=== PATIENT | female | born 1970 | race Caucasian/White ===

== ENCOUNTER 2017-04-02 22:03 | Emergency (ER) | payer SELFPAY ==
[~2017-04-02] VITALS: Ht 170.2 cm; Wt 83.3 kg
[~2017-04-02 22:03] MED LIST: ALBU1.25 NEB; ALBU8.5H8 IH; ATOR10TA PO; AZIT250T6 PO; BUDE10.2 IH; D-ME1CAP PO; DULO60CA6 PO; GUAI-40 PO; HYDR-2758 PO; MELO7.5T29 PO; OMEP40CA2 PO; PRED20TA PO; anti-inflammatory; muscle relaxer
[2017-04-03 00:05] LABS: BASO % 0 % (0-3); EOS # 0.1 x10^3/uL (0.0-0.7); EOS % 1 % (0-3); HEMATOCRIT 39.1 % (36.0-47.0); HEMOGLOBIN 13.5 g/dL (12.0-15.5); LYMPH # 2.6 x10^3/uL (1.0-4.8); LYMPH % 22 % (24-48); MEAN CORPUSCULAR HEMOGLOBIN 33 pg (25-35); MEAN CORPUSCULAR HGB CONC 35 g/dL (31-37); MEAN CORPUSCULAR VOLUME 96 fL (79-100); MONO # 0.9 x10^3/uL (0.0-1.1); MONO % 8 % (0-9); NEUT % 68 % (31-73); PLATELET COUNT 227 x10^3/uL (140-400); RED BLOOD COUNT 4.08 x10^6/uL (3.50-5.40); RED CELL DISTRIBUTION WIDTH 12.6 % (11.5-14.5); WHITE BLOOD COUNT 11.7 x10^3/uL (4.0-11.0)
[2017-04-03 00:16] LABS: ALBUMIN 3.2 g/dL (3.4-5.0); ALBUMIN/GLOBULIN RATIO 0.9 (1.0-1.7); CALCIUM 8.5 mg/dL (8.5-10.1); CREATININE 0.6 mg/dL (0.6-1.0); GFR 106.7; MAGNESIUM 2.1 mg/dL (1.8-2.4); POTASSIUM 3.8 mmol/L (3.5-5.1); TOTAL BILIRUBIN 0.2 mg/dL (0.2-1.0); TOTAL PROTEIN 6.8 g/dL (6.4-8.2)
--- NOTE | 2017-04-03 01:18 | EKG ---
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
[2017-04-03 01:27] LABS: BARBITURATES NEG (NEG); BENZODIAZEPINES NEG (NEG); CANNABINOIDS POS (NEG); COCAINE NEG (NEG); METHADONE NEG (NEG); OPIATES POS (NEG); PHENCYCLIDINE NEG (NEG)
[2017-04-03 01:28] LABS: BACTERIA,URINE FEW /HPF (0-FEW); BILIRUBIN,URINE NEG (NEG); CLARITY,URINE CLEAR; COLOR,URINE YELLOW; GLUCOSE,URINE NEG (NEG); NITRITE,URINE NEG (NEG); RBC,URINE 0 /HPF (0-2); SQUAMOUS EPITHELIAL CELL,UR FEW /LPF; UROBILINOGEN,URINE 0.2 mg/dL (0.2 mg/dL)
[2017-04-03 01:29] LABS: AMPHETAMINE/METHAMPHETAMINE NEG (NEG)
[2017-04-03 01:50] VITALS: BP 115/67
--- NOTE | 2017-04-03 02:58 | ED.ADGEN ---
Past History Past Medical History: COPD, Other Past Surgical History: , Hysterectomy, Other Smoking: Quit Greater Than 1 Year Alcohol Use: None Drug Use: None Adult General HPI HPI Patient is a 47-year-old woman, with a history of hypertension, who is currently being evaluated for "tremors", by her primary care provider, with concern for possible Parkinson's disease, who presents emergency Department with complaint of the tremors which she is being evaluated, and also of lightheadedness. Patient denies any vertiginous type symptoms, any nausea or vomiting, any chest pain or shortness of breath. She states that she was feeling lightheaded since this morning. "As though I might pass out", denies any syncopal episodes. Patient states it has been hot outside. She denies any sick contacts or exposures, denies any focal weakness, numbness or tingling, any change in the tremors for which she is being evaluated, which he described as a bolus and this type motion that is occasional. Patient denies any injuries , any recent travel or surgery, any medication changes. Review of Systems Review of Systems Constitutional: Denies fever or chills [] lightheadedness. Eyes: Denies change in visual acuity, redness, or eye pain [] HENT: Denies nasal congestion or sore throat [] Respiratory: Denies cough or shortness of breath [] Cardiovascular: No additional information not addressed in HPI [] GI: Denies abdominal pain, nausea, vomiting, bloody stools or diarrhea [] : Denies dysuria or hematuria [] Musculoskeletal: Denies back pain or joint pain [] Integument: Denies rash or skin lesions [] Neurologic: Denies headache, focal weakness or sensory changes , complaining of tremors. [] Endocrine: Denies polyuria or polydipsia [] Allergies Allergies Allergies Coded Allergies Type Severity Reaction Last Updated Verified Penicillins Allergy Intermediate Rash 07/31/16 Yes Sulfa (Sulfonamide Antibiotics) Allergy Intermediate Rash 07/31/16 Yes iodine Allergy Intermediate rash 07/31/16 Yes Physical Exam Physical Exam Constitutional: Well developed, well nourished, no acute distress, non-toxic appearance. [] HENT: Normocephalic, atraumatic, bilateral external ears normal, oropharynx moist, no oral exudates, nose normal. [] Eyes: PERRLA, EOMI, conjunctiva normal, no discharge. [] Neck: Normal range of motion, no tenderness, supple, no stridor. [] Cardiovascular:Heart rate regular rhythm, no murmur, S1, S2, no rubs or gallops. [] Lungs & Thorax: Bilateral breath sounds clear to auscultation , no wheezing, rhonchi, rales. No chest wall crepitus or tenderness. [] Abdomen: Bowel sounds normal, soft, no tenderness, no rebound, rigidity, no guarding, no masses, no pulsatile masses. [] Skin: Warm, dry, no erythema, no rash. [] Back: No tenderness, no CVA tenderness. [] Extremities: No tenderness, no cyanosis, no clubbing, ROM intact, no edema. Negative Homans sign. [] Neurologic: Alert and oriented X 3, normal motor function, normal sensory function, no focal deficits noted. [] Psychologic: Affect normal, judgement normal, mood normal. [] Current Patient Data Lab Results Laboratory Tests Test 04/02/17 23:43 04/03/17 01:03 White Blood Count 11.7 x10^3/uL (4.0-11.0) H Red Blood Count 4.08 x10^6/uL (3.50-5.40) Hemoglobin 13.5 g/dL (12.0-15.5) Hematocrit 39.1 % (36.0-47.0) Mean Corpuscular Volume 96 fL (79-100) Mean Corpuscular Hemoglobin 33 pg (25-35) Mean Corpuscular Hemoglobin Concent 35 g/dL (31-37) Red Cell Distribution Width 12.6 % (11.5-14.5) Platelet Count 227 x10^3/uL (140-400) Neutrophils (%) (Auto) 68 % (31-73) Lymphocytes (%) (Auto) 22 % (24-48) L Monocytes (%) (Auto) 8 % (0-9) Eosinophils (%) (Auto) 1 % (0-3) Basophils (%) (Auto) 0 % (0-3) Neutrophils # (Auto) 8.0 x10^3uL (1.8-7.7) H Lymphocytes # (Auto) 2.6 x10^3/uL (1.0-4.8) Monocytes # (Auto) 0.9 x10^3/uL (0.0-1.1) Eosinophils # (Auto) 0.1 x10^3/uL (0.0-0.7) Basophils # (Auto) 0.0 x10^3/uL (0.0-0.2) Sodium Level 143 mmol/L (136-145) Potassium Level 3.8 mmol/L (3.5-5.1) Chloride Level 105 mmol/L (98-107) Carbon Dioxide Level 30 mmol/L (21-32) Anion Gap 8 (6-14) Blood Urea Nitrogen 17 mg/dL (7-20) Creatinine 0.6 mg/dL (0.6-1.0) Estimated GFR (Cockcroft-Gault) 106.7 BUN/Creatinine Ratio 28 (6-20) H Glucose Level 114 mg/dL (70-99) H Calcium Level 8.5 mg/dL (8.5-10.1) Magnesium Level 2.1 mg/dL (1.8-2.4) Total Bilirubin 0.2 mg/dL (0.2-1.0) Aspartate Amino Transferase (AST) 17 U/L (15-37) Alanine Aminotransferase (ALT) 22 U/L (14-59) Alkaline Phosphatase 53 U/L (46-116) Total Protein 6.8 g/dL (6.4-8.2) Albumin 3.2 g/dL (3.4-5.0) L Albumin/Globulin Ratio 0.9 (1.0-1.7) L Urine Collection Type Unknown Urine Color Yellow Urine Clarity Clear Urine pH 6.5 Urine Specific [place] 1.020 Urine Protein Neg (NEG-TRACE) Urine Glucose (UA) Neg mg/dL (NEG) Urine Ketones (Stick) Neg mg/dL (NEG) Urine Blood Neg (NEG) Urine Nitrite Neg (NEG) Urine Bilirubin Neg (NEG) Urine Urobilinogen Dipstick 0.2 mg/dL (0.2 mg/dL) Urine Leukocyte Esterase Trace (NEG) Urine RBC 0 /HPF (0-2) Urine WBC 5-10 /HPF (0-4) Urine Squamous Epithelial Cells Few /LPF Urine Bacteria Few /HPF (0-FEW) Urine Opiates Screen Pos (NEG) Urine Methadone Screen Neg (NEG) Urine Barbiturates Neg (NEG) Urine Phencyclidine Screen Neg (NEG) Urine Amphetamine/Methamphetamine Neg (NEG) Urine Benzodiazepines Screen Neg (NEG) Urine Cocaine Screen Neg (NEG) Urine Cannabinoids Screen Pos (NEG) Urine Ethyl Alcohol Neg (NEG) EKG EKG EC: Sinus rhythm, heart rate 90 beats per minute, upright axis, QTC of 427, CA 156, QRS of 80, no ST elevations or depressions, normalities noted in the anterior septal leads, abnormal ECG, but does not meet STEMI criteria. As interpreted by me. [] Radiology/Procedures Radiology/Procedures Chest x-ray: One view: Normal cardiopulmonary silhouette, no infiltrates, no effusions, no pneumothorax, no soft tissue or bony abnormalities identified. As interpreted by me. [] Course & Med Decision Making Course & Med Decision Making Pertinent Labs and Imaging studies reviewed. (See chart for details) Patient noted to be occasionally flinging both arms into the air, and shaking her legs, however during our discussion, she is not experiencing any symptoms. 's denies lightheadedness during my evaluation, states she is feeling better, denies any vertiginous type symptoms. Laboratory studies and chest x- ray obtained along with ECG, did not reveal evidence of acutely concerning findings. When I went to speak with the patient, she was ambulating back from the bathroom, and asked when she would be discharged. I discussed with the patient that her electrolytes and other laboratory studies not reveal any acutely concerning findings at this time, she stated that was a relief, and that she was ready to go home. She has an appointment to follow up with her primary care provider in a few days for continued evaluation of her movement symptoms, we did discuss concerning symptoms that prompt return to the ED for additional evaluation. Patient voiced understanding and agreement, discharged home in stable condition with plan as above. Final Impression Final Impression [] Problems: Dragon Disclaimer Dragon Disclaimer This electronic medical record was generated, in whole or in part, using a voice recognition dictation system. Departure: Impression: Primary Impression: Light-headed feeling Disposition: 01 HOME, SELF-CARE Condition: IMPROVED MARGARET NOBLES DO Apr 03, 2017 02:58
--- NOTE | 2017-04-03 07:34 | RAD ---
Portable AP view CXR: Clinical indications: Tremor. History of COPD. Comparison: July 31, 2016. Findings: No acute lung infiltrate or pleural effusion or pulmonary edema or lung mass or pneumothorax is seen. The heart size, pulmonary vasculature, mediastinum and both hunter are stable. Impression: No acute radiographic abnormality is seen.
== END 2017-04-03 01:58 | disposition home or self-care (01) ==
LOC: ER 22:03
DX: R42 Dizziness and giddiness (principal); R25.1 Tremor, unspecified; J44.9 Chronic obstructive pulmonary disease, unspecified; I10 Essential (primary) hypertension; Z87.891 Personal history of nicotine dependence; Z88.0 Allergy status to penicillin; Z88.2 Allergy status to sulfonamides; Z91.041 Radiographic dye allergy status
CPT/HCPCS: 36415; 71010; 80053; 80305; 80320; 81001; 83735; 85027; 87086; 93005; G0481; 99285-25

== ENCOUNTER 2018-05-18 13:26 | Emergency (ER) | payer OTHER ==
[~2018-05-18] VITALS: Ht 167.6 cm; Wt 75.7 kg
--- NOTE | 2018-05-18 14:04 | PHYS DOC ---
Past History Past Medical History: GERD, Other Past Surgical History: , Hysterectomy, Lumbar Laminectomy Smoking: Quit Greater Than 1 Year Alcohol Use: None Drug Use: None Adult General Chief Complaint Chief Complaint: BACK PAIN OR INJURY HPI HPI Patient is a 48-year-old female who presents with complaining of back injury. Patient states she had low back surgery and screw placement in July 2017 and taking several pain medication. Patient states she was slipped on the floor after draining and landed on her back without head injury or loss of consciousness prior to arrival to ER. Patient states her back pain getting worse and she drove to the hospital to be checked for possible injury to her back. Patient denies focal neuro deficit, urine and bowel incontinence, fever and chills. Review of Systems Review of Systems Constitutional: Denies fever or chills [] Eyes: Denies change in visual acuity, redness, or eye pain [] HENT: Denies nasal congestion or sore throat [] Respiratory: Denies cough or shortness of breath [] Cardiovascular: No additional information not addressed in HPI [] GI: Denies abdominal pain, nausea, vomiting, bloody stools or diarrhea [] : Denies dysuria or hematuria [] Musculoskeletal: Reports back pain Integument: Denies rash or skin lesions [] Neurologic: Denies headache, focal weakness or sensory changes [] Endocrine: Denies polyuria or polydipsia [] All other systems were reviewed and found to be within normal limits, except as documented in this note. Allergies Allergies Allergies Coded Allergies Type Severity Reaction Last Updated Verified Penicillins Allergy Intermediate Rash 07/31/16 Yes Sulfa (Sulfonamide Antibiotics) Allergy Intermediate Rash 07/31/16 Yes iodine Allergy Intermediate rash 07/31/16 Yes Physical Exam Physical Exam Constitutional: Well nourished, mild distress, non-toxic, anxious and tearful[] HENT: Normocephalic, atraumatic Eyes: PERRLA, EOMI, conjunctiva normal, no discharge. [] Neck: Normal range of motion, no tenderness, supple, no stridor. [] Cardiovascular:Heart rate regular rhythm, no murmur [] Lungs & Thorax: Bilateral breath sounds clear to auscultation [] Abdomen: Bowel sounds normal, soft, no tenderness, no masses, no pulsatile masses. [] Skin: Warm, dry, no erythema, no rash. [] Back: No deformity, painful range of motion, no midline tenderness, no CVA tenderness. [] Extremities: No tenderness, no cyanosis, no clubbing, ROM intact, no edema. [] Neurologic: Alert and oriented X 3, normal motor function, normal sensory function, no focal deficits noted. [] Psychologic: Affect anxious and tearful, mood normal. [] Current Patient Data Vital Signs Vital Signs Date Time Temp Pulse Resp B/P (MAP) Pulse Ox O2 Delivery O2 Flow Rate FiO2 05/18/18 13:40 98.6 92 18 93 Room Air EKG EKG [] Radiology/Procedures Radiology/Procedures [[address] [address] IMAGING REPORT Signed PATIENT: BEATA MILLER ACCOUNT: [id number] : 1970 LOCATION: ER AGE: 48 SEX: F EXAM STATUS: REG ER ORD. PHYSICIAN: DAKSHA WILKINS MD REASON: back injury, history of back surgery PROCEDURE: CT LUMBAR SPINE WO CONTRAST Examination: CT lumbar spine without contrast HISTORY: History of low back pain, fall COMPARISON: None available TECHNIQUE: Axial CT images of the lumbar spine was performed without contrast. Coronal and sagittal reformats are performed Exposure: One or more of the following individualized dose reduction techniques were utilized for this examination: 1. Automated exposure control 2. Adjustment of the mA and/or kV according to patient size 3. Use of iterative reconstruction technique FINDINGS: The vertebral body heights are maintained. There is minimal 1 mm anterolisthesis of L4 on L5 and 1 mm retrolisthesis of L3 on L4. Posterior lumbar fusion hardware identified at L4, L5, S1 vertebral levels. Mild disc bulge identified at L2-L3 vertebral level causing mild anterior thecal sac impression. There is mild disc bulge identified at L3-L4 vertebral level with mild bilateral neural foraminal narrowing.There is probable mild to moderate disc bulge identified at this level with mild bilateral neural foraminal narrowing at L4-L5. There is mild disc bulge identified at L5-S1 vertebral levels. Mild bilateral neural foraminal narrowing. Evaluation of the lower lumbar spine is limited due to streak artifact from lumbar hardware. IMPRESSION: 1. Lower lumbar hardware with mild to moderate degenerative changes lumbar spine as described above. Electronically signed by: Anup Martin MD (05/18/2018 2:26 PM) [id number] DICTATED AND SIGNED BY: ANUP MARTIN MD DATE: 05/18/18 1419 CC: DONNA MARAVILLA MD; DAKSHA WILKINS MD ~ ] Course & Med Decision Making Course & Med Decision Making Pertinent Imaging studies reviewed. (See chart for details) Evaluation of patient in ER showed 48-year-old female patient with history of previous back surgery on several pain medication complaining of a fall today. Patient had unremarkable physical exam except for anxiety. CT of lumbar spine did not show acute fracture and showed mild to moderate bulging disc in different limits. Patient states she has appointment with her back surgeon in 3 days and asking for work excuse until she seen by her surgeon but later on she mentioned to [employer] She was seen by her surgeon today and her surgeon wants she returns to work. [] Dragon Disclaimer Dragon Disclaimer This electronic medical record was generated, in whole or in part, using a voice recognition dictation system. Departure Departure: Impression: Primary Impression: Acute lumbosacral myofascial strain Additional Impressions: Tobacco abuse Tobacco abuse counseling Disposition: HOME, SELF-CARE (@1506) Condition: STABLE Referrals: DONNA MARAVILLA MD (PCP) Patient Instructions: Lumbosacral Strain Additional Instructions: Follow-up with your back surgeon regarding marked to moderate bulging disc and injury to her back Continue home pain medication Apply ice on your back Problem Qualifiers DAKSHA WILKINS MD May 18, 2018 14:04
--- NOTE | 2018-05-18 14:30 | RAD ---
Examination: CT lumbar spine without contrast HISTORY: History of low back pain, fall COMPARISON: None available TECHNIQUE: Axial CT images of the lumbar spine was performed without contrast. Coronal and sagittal reformats are performed Exposure: One or more of the following individualized dose reduction techniques were utilized for this examination: 1. Automated exposure control 2. Adjustment of the mA and/or kV according to patient size 3. Use of iterative reconstruction technique FINDINGS: The vertebral body heights are maintained. There is minimal 1 mm anterolisthesis of L4 on L5 and 1 mm retrolisthesis of L3 on L4. Posterior lumbar fusion hardware identified at L4, L5, S1 vertebral levels. Mild disc bulge identified at L2-L3 vertebral level causing mild anterior thecal sac impression. There is mild disc bulge identified at L3-L4 vertebral level with mild bilateral neural foraminal narrowing.There is probable mild to moderate disc bulge identified at this level with mild bilateral neural foraminal narrowing at L4-L5. There is mild disc bulge identified at L5-S1 vertebral levels. Mild bilateral neural foraminal narrowing. Evaluation of the lower lumbar spine is limited due to streak artifact from lumbar hardware. IMPRESSION: 1. Lower lumbar hardware with mild to moderate degenerative changes lumbar spine as described above. Electronically signed by: Anup Forde MD (05/18/2018 2:26 PM) [id number]
[2018-05-18 15:08] VITALS: BP 146/101
== END 2018-05-18 15:14 | disposition home or self-care (01) ==
LOC: ER 13:26
DX: S39.012A Strain of muscle, fascia and tendon of lower back, initial encounter (principal); K21.9 Gastro-esophageal reflux disease without esophagitis; Z72.0 Tobacco use; Z71.6 Tobacco abuse counseling; Z98.890 Other specified postprocedural states; Z88.0 Allergy status to penicillin; Z88.2 Allergy status to sulfonamides; Z91.041 Radiographic dye allergy status; W01.0XXA Fall on same level from slipping, tripping and stumbling without subsequent striking against object, initial encounter; Y93.89 Activity, other specified; Y92.89 Other specified places as the place of occurrence of the external cause; Y99.8 Other external cause status
CPT/HCPCS: 72131; 99284-25

== ENCOUNTER 2018-09-30 15:16 | Emergency (ER) | payer OTHER ==
[~2018-09-30] VITALS: Ht 167.6 cm; Wt 76.8 kg
[~2018-09-30 15:16] MED LIST changes: +ALBU2.5V8 IH; -ALBU8.5H8 IH; +HYDR-2155 PO; -HYDR-2758 PO
[2018-09-30] MEDS ORDERED: LIDOCAINE 1%/EPI 1:100,000 20 ML VIAL. IJ ONE (15:45)
--- NOTE | 2018-09-30 15:57 | PHYS DOC ---
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 She states a few days ago she felt a small tender nodule her subcutaneous region in her left antecubital fossa, and it has become increasingly red, painful, tender and large. She has not had any fevers or chills. She adamantly denies any IV drug use, although states she has had problems with drug use about 20 years ago. Palpation of the affected area worsens her pain. There are no alleviating factors to her symptoms. Review of Systems Review of Systems Constitutional: Denies fever or chills [] Eyes: Denies change in visual acuity, redness, or eye pain [] HENT: Denies nasal congestion or sore throat [] Respiratory: Denies cough or shortness of breath [] GI: Denies abdominal pain, nausea, vomiting, bloody stools or diarrhea [] : Denies dysuria or hematuria [] Musculoskeletal: Denies back pain or joint pain [] Integument: Denies rash or skin lesions, except as noted in the history of present illness. [] Neurologic: Denies headache, focal weakness or sensory changes [] Endocrine: Denies polyuria or polydipsia [] Psychiatric: The patient reports feeling very anxious. All other systems were reviewed and found to be within normal limits, except as documented in this note. Current Medications Current Medications Current Medications Medications (Trade) Dose Ordered Sig/Carrie Start Time Stop Time Status Last Admin Dose Admin Lidocaine/ Epinephrine (Xylocaine 1%-Epi 1:100,000) 20 ml 1X ONCE 09/30/18 15:45 09/30/18 15:46 DC Allergies Allergies Allergies Coded Allergies Type Severity Reaction Last Updated Verified Penicillins Allergy Intermediate Rash 07/31/16 Yes Sulfa (Sulfonamide Antibiotics) Allergy Intermediate Rash 07/31/16 Yes iodine Allergy Intermediate rash 07/31/16 Yes Physical Exam Physical Exam PHYSICAL EXAM: CONSTITUTIONAL: Well developed, well nourished HEAD: normocephalic, atraumatic EENT: PERRL, EOMI. Conjunctivae normal color, sclerae non-icteric; moist mucous membranes. NECK: Supple, non-tender; no meningismus. LUNGS: Lungs CTA, breathing even and unlabored. Normal air movement. HEART: Regular rate and rhythm, no murmur CHEST: No deformity; non-tender ABDOMEN: The abdomen is soft, and non-tender, no masses or bruits. EXTREM: Normal ROM; no deformity, no calf tenderness. Normal pulses palpable in all extremities. There is no pedal edema. SKIN: Left antecubital fossa, there is an area of erythema, and tenderness to palpation, along with some soft tissue swelling, with fluctuance, suggestive of a subcutaneous abscess. No other rash; no diaphoresis NEURO: Alert; normal speech and cognition; CN's grossly intact; strength grossly intact without focal deficit. BACK: No CVA TTP. Current Patient Data Vital Signs Vital Signs Date Time Temp Pulse Resp B/P (MAP) Pulse Ox O2 Delivery O2 Flow Rate FiO2 09/30/18 15:20 98.3 106 18 97 Room Air EKG EKG [] Radiology/Procedures Radiology/Procedures [] Course & Med Decision Making Course & Med Decision Making INCISION AND DRAINAGE PROCEDURE NOTE: The left forearm was prepped with Betadine, and the skin was anesthetized with 1 % lidocaine. An incision was made in the most fluctuant portion of the abscess, with drainage of a moderate amount of pus. The wound was probed with a blunt forceps, and packed with 1/2 inch gauze packing. The patient tolerated the procedure well. I discussed wound care at home with the patient, including changing packing daily for the next 5 days, the need for follow-up, and return precautions. Dragon Disclaimer Dragon Disclaimer This electronic medical record was generated, in whole or in part, using a voice recognition dictation system. Departure Departure: Impression: Primary Impression: Abscess Disposition: 01 HOME, SELF-CARE Condition: STABLE Referrals: DONNA MARAVILLA MD (PCP) Patient Instructions: Abscess Additional Instructions: Change the packing once daily for the next 5 days. Applying warm compresses to the affected area may help improve your symptoms. Follow-up with your primary care provider for a wound check in the next 2 days. Please call tomorrow morning to schedule appointment. Scripts Doxycycline Hyclate (DOXYCYCLINE HYCLATE) 100 Mg Capsule 1 CAP PO BID for -, #20 CAP Prov: ZAINAB STRICKLAND MD 09/30/18 ZAINAB STRICKLAND MD Sep 30, 2018 15:57
[2018-09-30] MEDS ORDERED: DOXYCYCLINE HYCLATE 100 MG TABLET PO ONE (17:00)
[2018-09-30] MEDS ORDERED: DOXY100C2 PO (17:00)
[2018-09-30 17:10] VITALS: BP 150/88
== END 2018-09-30 17:11 | disposition home or self-care (01) ==
LOC: ER 15:16
DX: L02.414 Cutaneous abscess of left upper limb (principal); J44.9 Chronic obstructive pulmonary disease, unspecified; K21.9 Gastro-esophageal reflux disease without esophagitis; Z87.891 Personal history of nicotine dependence; Z88.0 Allergy status to penicillin; Z88.2 Allergy status to sulfonamides; Z91.041 Radiographic dye allergy status
CPT/HCPCS: 10060; 87070; 99283

== ENCOUNTER 2020-02-18 05:21 | Emergency (ER) | payer OTHER ==
[~2020-02-18] VITALS: Ht 167.6 cm; Wt 84.6 kg
[~2020-02-18 05:21] MED LIST changes: +DOXY100C2 PO
--- NOTE | 2020-02-18 05:57 | PHYS DOC ---
Past History Past Medical History: Bronchitis, COPD, GERD, Other (DARWIN MCCOY DO) Past Surgical History: , Hysterectomy, Lumbar Laminectomy, Other Additional Past Surgical Histo: "KNEE CLEAN OUT" (DARWIN MCCOY DO) Smoking: Quit Greater Than 1 Year Alcohol Use: Occasionally Drug Use: None (DARWIN MCCOY DO) General Adult EDM: Chief Complaint: COUGH HPI: HPI: 49-year-old female presents with intermittent cough and a sore throat. She states she has had this for a couple of days. She mostly complains that she is tired and wants to get some sleep. She denies fever or chills. No known COVID- 19 contacts. She has no other complaints. (DARWIN MCCOY DO) Review of Systems: Review of Systems: Constitutional: Denies fever or chills Eyes: Denies change in visual acuity HENT: sore throat Respiratory: Cough without shortness of breath Cardiovascular: Denies chest pain or edema GI: Denies abdominal pain, nausea, vomiting, bloody stools or diarrhea : Denies dysuria Musculoskeletal: Denies back pain or joint pain Integument: Denies rash Neurologic: Denies headache, focal weakness or sensory changes Endocrine: Denies polyuria or polydipsia Lymphatic: Denies swollen glands Psychiatric: Denies depression or anxiety (DARWIN MCCOY DO) Heart Score: Risk Factors: Risk Factors: DM, Current or recent (<one month) smoker, HTN, HLP, family history of CAD, obesity. Risk Scores: Score 0 - 3: 2.5% MACE over next 6 weeks - Discharge Home Score 4 - 6: 20.3% MACE over next 6 weeks - Admit for Clinical Observation Score 7 - 10: 72.7% MACE over next 6 weeks - Early Invasive Strategies (DARWIN MCCOY DO) Allergies: Allergies: Allergies Coded Allergies Type Severity Reaction Last Updated Verified Penicillins Allergy Intermediate Rash 07/31/16 Yes Sulfa (Sulfonamide Antibiotics) Allergy Intermediate Rash 07/31/16 Yes iodine Allergy Intermediate rash 07/31/16 Yes (DARWIN MCCOY DO) Physical Exam: PE: Constitutional: Well developed, obese, well nourished, no acute distress, non- toxic appearance. [] HENT: Normocephalic, atraumatic, bilateral external ears normal, oropharynx moist, no oral exudates, nose normal. [] Eyes: PERRLA, EOMI, conjunctiva normal, no discharge. [] Neck: Normal range of motion, no tenderness, supple, no stridor. [] Cardiovascular: Heart rate regular rhythm, no murmur [] Lungs & Thorax: Bilateral breath sounds clear to auscultation [] Abdomen: Bowel sounds normal, soft, no tenderness, no masses, no pulsatile masses. [] Skin: Warm, dry, no erythema, no rash. [] Back: No tenderness, no CVA tenderness. [] Extremities: No tenderness, no cyanosis, no clubbing, ROM intact, no edema. [] Neurologic: Alert and oriented X 3, normal motor function, normal sensory function, no focal deficits noted. [] Psychologic: Affect normal, judgement normal, mood normal. [] (DARWIN MCCOY DO) Current Patient Data: Vital Signs: Vital Signs Date Time Temp Pulse Resp B/P (MAP) Pulse Ox O2 Delivery O2 Flow Rate FiO2 02/18/20 05:40 98.1 94 20 116/81 (93) 100 Room Air (DARWIN MCCOY DO) EKG: EKG: [] (DARWIN MCCOY DO) Radiology/Procedures: Radiology/Procedures: [] (DARWIN MCCOY DO) Impressions: PROCEDURE: CHEST AP ONLY CHEST AP ONLY Clinical History: Cough Technique: AP view of the chest was obtained at 02/18/2020 5:51 AM. Comparison: April 02, 2017. Findings: The cardiomediastinal silhouette is normal. The pulmonary vasculature is normal. There is mild perihilar and basilar linear opacities. Impression: Mild bilateral infiltrates could be discoid atelectasis or early pneumonia. (HTAD TAMAYO DO) Course & Med Decision Making: Course & Med Decision Making Pertinent Labs and Imaging studies reviewed. (See chart for details) The patient's work-up is pending. I am signing her out to Dr. Nobles at 0600. [] (DARWIN MCCOY DO) Dragon Disclaimer: Alexis Disclaimer: This electronic medical record was generated, in whole or in part, using a voice recognition dictation system. (DARWIN MCCOY DO) Departure Departure: Impression: Primary Impression: Pneumonia Qualified Codes: J18.9 - Pneumonia, unspecified organism Disposition: HOME/RESIDENCE PRIOR TO ADM Condition: STABLE Referrals: PCP,SOPHIA (PCP) Patient Instructions: Pneumonia, Adult Additional Instructions: Thank you for visiting [facility]. We appreciate you trusting us with your care. If any additional problems come up don't hesitate to return to visit us. Please follow up with your primary care provider so they can plan additional care if needed and know about the problem that you had. If symptoms worsen come back to the Emergency Department. Any concerning symptoms that start such as chest pain, shortness of air, weakness or numbness on one side of the body, running high fevers or any other concerning symptoms return to the ER. You have a viral syndrome which may include symptoms like muscle aches, fevers, chills, runny nose, cough, sneezing, sore throat, vomiting, or diarrhea. One of the potential viruses that you may have is SARS-CoV-2, the virus that causes COVID-19, also known as the Coronavirus. You are just as likely to have a different viral infection such as the common cold, flu, etc. Most patients with the Coronavirus have mild symptoms and recover on their own. Resting, staying hydrated, and sleep from known cases can be helpful. As of todays visit, you are well enough to go home and treat your symptoms with oral fluids and over the counter medications. Coronavirus testing is not performed on most people with mild symptoms who are being discharged from the emergency department. If Coronavirus testing was performed the results will not be available for possibly up to 2-3 days. If your result is positive you will be contacted. Please follow the following precautions at home: 1) Stay home except to get medical care. 2) As advised by the CDC we recommend you stay in your home and minimize contact with other people. We do not want you to spread the infection. 3) Those who are older or have significant medical issues may have more severe symptoms from this infection. We recommend self-isolation,FOR AT LEAST 7 DAYS after your 1st day of symptoms. AFTER you feel better please wait AT LEAST ANOTHER WEEK before returning to regular activities and being around other people! 4) IF you become sicker and have difficulty breathing, chest pain, unable to eat/drink, severe vomiting, diarrhea, or weakness you may need to return to the Emergency Department. 5) You should restrict activities outside your home, except for getting medical care. DO NOT go to work, school, or public areas. Avoid using public transportation, ride sharing, or taxis. 6) Separate yourself from other people in your home. You should use a separate bathroom if possible. 7) Avoid sharing personal household items such as dishes, cups, eating utensils, towels, etc. 8) Clean all high touch surfaces every day (door knobs, counter tops, etc). Use a household cleaning spray or wipe per label instructions. 9) Clean your hands often. Wash your hands with soap and water for at least 20 seconds. 10) Cover your mouth and nose with a tissue when you cough or sneeze. 11) Throw used tissues in a trash can and immediately wash your hands. For additional resources please visit the CDC website or the [facility] ([phone]). Scripts Azithromycin (AZITHROMYCIN TABLET) 250 Mg Tablet 1 PKG PO UD for bronchitis, #6 TAB Take 2 tablets today and then one tablet every day thereafter for the next 4 days Prov: THAD TAMAYO DO 02/18/20 DARWIN MCCOY DO February 18, 2020 05:57 THAD TAMAYO DO February 18, 2020 06:48
--- NOTE | 2020-02-18 06:31 | RAD ---
CHEST AP ONLY Clinical History: Cough Technique: AP view of the chest was obtained at 02/18/2020 5:51 AM. Comparison: April 02, 2017. Findings: The cardiomediastinal silhouette is normal. The pulmonary vasculature is normal. There is mild perihilar and basilar linear opacities. Impression: Mild bilateral infiltrates could be discoid atelectasis or early pneumonia. Electronically signed by: Deric Navarro III, MD (02/18/2020 6:27 AM) [id number]
[2020-02-18 06:33] VITALS: BP 112/76
[2020-02-18] MEDS ORDERED: AZIT250T6 PO (06:48)
== END 2020-02-18 06:55 | disposition home or self-care (01) ==
LOC: ER 05:21
DX: J18.9 Pneumonia, unspecified organism (principal); J44.9 Chronic obstructive pulmonary disease, unspecified; K21.9 Gastro-esophageal reflux disease without esophagitis; Z87.891 Personal history of nicotine dependence; Z88.0 Allergy status to penicillin; Z88.2 Allergy status to sulfonamides; Z88.8 Allergy status to other drugs, medicaments and biological substances
CPT/HCPCS: 71045; 87070; 87880; 99284

== ENCOUNTER 2021-07-23 15:46 | Emergency (ER) | payer OTHER ==
[~2021-07-23 15:46] MED LIST changes: -DOXY100C2 PO; +DOXY100C3 PO; -DULO60CA6 PO; +DULO60CA7 PO
== END 2021-07-23 16:15 | disposition left against medical advice (07) ==
LOC: ER 15:46
DX: R06.02 Shortness of breath (principal); Z53.21 Procedure and treatment not carried out due to patient leaving prior to being seen by health care provider